=== PATIENT | female | born 1970 | race Caucasian/White ===

== ENCOUNTER 2018-09-07 15:33 | Outpatient (CLI) | payer OTHER ==
--- NOTE | 2018-09-07 16:04 | MMO ---
BILATERAL DIGITAL SCREENING MAMMOGRAMS: Date: 09/07/18 HISTORY: 48-year-old female presents for digital screening mammogram. COMPARISON: 08/06/15, 11/02/10. FINDINGS: This patient's mammogram was interpreted with the assistance of computer-aided detection. The breasts are heterogeneously dense, which can obscure small masses. There are multiple stable foca l areas of parenchymal density asymmetry noted bilaterally. IMPRESSION: BIRADS 2: Benign Finding(s) Continue routine screening. POS: [facility]
== END 2018-09-07 15:34 | disposition home or self-care (01) ==
LOC: SCSMAMMO 15:33
PROVIDERS: ATTEND Obstetrics & Gynecology
DX: Z12.31 Encounter for screening mammogram for malignant neoplasm of breast (principal)
CPT/HCPCS: 77067

== ENCOUNTER 2024-09-19 09:50 | Outpatient (CLI) | payer OTHER | END 2024-09-19 09:51 | disposition home or self-care (01) | LOC: BICMAMMO 09:50 | PROVIDERS: ATTEND Obstetrics & Gynecology | DX: R92.8 Other abnormal and inconclusive findings on diagnostic imaging of breast (principal); N63.11 Unspecified lump in the right breast, upper outer quadrant | CPT/HCPCS: G0279 ==